=== PATIENT | female | born 1940 | race Caucasian/White ===

== ENCOUNTER → 2021-11-23 | Outpatient (CLI) | payer MEDICARE, BC ==
[2021-11-23 18:43] LABS: BASOPHILS ABSOLUTE AUTO 0.04 K/mm3 (0.00-0.23); BASOPHILS PERCENT AUTO 0 % (0-2); EOSINOPHILS ABSOLUTE AUTO 0.14 K/mm3 (0.00-0.68); EOSINOPHILS PERCENT AUTO 1 % (0-6); Hematocrit 37.3 % (33.0-51.0); Hemoglobin 12.6 g/dL (11.5-16.0); IMMATURE GRAN ABSOLUTE AUTO 0.05 K/mm3 (0.00-0.10); IMMATURE GRAN PERCENT AUTO 0 % (0-1); LYMPHOCYTES ABSOLUTE AUTO 2.18 K/mm3 (0.84-5.20); LYMPHOCYTES PERCENT AUTO 18 % (21-46); MONOCYTES PERCENT AUTO 6 % (4-13); Mean Corpuscular HGB 31.5 pg (26.0-34.0); Mean Corpuscular HGB Conc 33.8 g/dL (31.5-36.5); Mean Corpuscular Volume 93 fL (80-100); Mean Platelet Volume 9.8 fL (9.1-12.4); NEUTROPHILS ABSOLUTE AUTO 9.25 K/mm3 (1.96-9.15); NEUTROPHILS PERCENT AUTO 74 % (41-73); Platelet Count 269 K/mm3 (150-400); RDW Coefficient Variation 12.8 % (11.7-14.2); White Blood Cell Count 12.46 K/mm3 (4.00-11.30)
[2021-11-23 19:02] LABS: Albumin, Blood 3.8 g/dL (3.4-5.0); Bilirubin, Total 0.4 mg/dL (0.1-1.0); Calcium, Blood 9.1 mg/dL (8.5-10.1); Creatinine, Blood 0.85 mg/dL (0.40-1.00); Globulin, Blood 3.7 g/dL (2.2-4.0); Potassium, Blood 3.6 mmol/L (3.5-5.5); Total Protein, Blood 7.5 g/dL (6.4-8.2)
== END ==
LOC: LAB SHORT 17:30 → LAB 17:30
PROVIDERS: Physician Assistant
DX: E11.9 Type 2 diabetes mellitus without complications (principal); R30.0 Dysuria; R31.9 Hematuria, unspecified
CPT/HCPCS: 80053; 83036; 85025; 87077; 87086; 87186

== ENCOUNTER → 2021-12-24 | Outpatient (CLI) | payer MEDICARE, BC | END | disposition home or self-care (01) | LOC: LAB SHORT 14:34 → LAB 14:34 | DX: N39.0 Urinary tract infection, site not specified (principal) | CPT/HCPCS: 87077; 87086; 87186 ==

== ENCOUNTER → 2022-08-14 | Outpatient (CLI) | payer MEDICARE, BC ==
[2022-08-14 13:49] LABS: BASOPHILS ABSOLUTE AUTO 0.03 K/mm3 (0.00-0.23); BASOPHILS PERCENT AUTO 0 % (0-2); EOSINOPHILS ABSOLUTE AUTO 0.09 K/mm3 (0.00-0.68); EOSINOPHILS PERCENT AUTO 1 % (0-6); Hematocrit 40.5 % (33.0-51.0); Hemoglobin 13.6 g/dL (11.5-16.0); IMMATURE GRAN ABSOLUTE AUTO 0.02 K/mm3 (0.00-0.10); IMMATURE GRAN PERCENT AUTO 0 % (0-1); LYMPHOCYTES ABSOLUTE AUTO 2.39 K/mm3 (0.84-5.20); LYMPHOCYTES PERCENT AUTO 29 % (21-46); MONOCYTES ABSOLUTE AUTO 0.57 K/mm3 (0.16-1.47); MONOCYTES PERCENT AUTO 7 % (4-13); Mean Corpuscular HGB 32.5 pg (26.0-34.0); Mean Corpuscular HGB Conc 33.6 g/dL (31.5-36.5); Mean Corpuscular Volume 97 fL (80-100); Mean Platelet Volume 9.7 fL (9.1-12.4); NEUTROPHILS ABSOLUTE AUTO 5.23 K/mm3 (1.96-9.15); NEUTROPHILS PERCENT AUTO 63 % (41-73); Platelet Count 244 K/mm3 (150-400); RDW Coefficient Variation 12.3 % (11.7-14.2); RDW Standard Deviation 43.9 fL (35.1-46.3); Red Blood Cell Count 4.19 M/mm3 (3.80-5.20); White Blood Cell Count 8.33 K/mm3 (4.00-11.30)
[2022-08-14 14:38] LABS: Albumin, Blood 4.3 g/dL (3.4-5.0); Albumin/Globulin Ratio 1.2 (0.8-1.8); Bilirubin, Total 0.7 mg/dL (0.1-1.0); Bun/Creatinine Ratio 25.1 (12.0-20.0); Calcium, Blood 9.4 mg/dL (8.5-10.1); Creatinine, Blood 0.96 mg/dL (0.40-1.00); Globulin, Blood 3.7 g/dL (2.2-4.0); Potassium, Blood 3.9 mmol/L (3.5-5.5)
== END | disposition home or self-care (01) ==
LOC: LAB 13:14 → LAB SHORT 13:14
PROVIDERS: Nurse Practitioner Family
DX: M54.9 Dorsalgia, unspecified (principal); R53.83 Other fatigue
CPT/HCPCS: 80053; 83690; 85025

== ENCOUNTER 2023-11-21 08:38 | Day surgery (SDC) | payer MEDICARE, BC ==
[2023-11-21] VITALS (7 sets, daily range): BP systolic 114–148; BP diastolic 66–86
[~2023-11-21] VITALS: Ht 165.1 cm; Wt 80.7 kg
[2023-11-21] MEDS ORDERED: Acetaminophen650 M1 PO (09:57)
[2023-11-21] MEDS ORDERED: AMLO10 PO (09:57)
[2023-11-21] MEDS ORDERED: [UNRECOGNIZED DRUG - OTHER] PO (10:00)
[2023-11-21] MEDS ORDERED: CALCIUM PO (10:00)
[2023-11-21] MEDS ORDERED: VIT D3 PO (10:01)
[2023-11-21] MEDS ORDERED: ELIQUIS2.5 MG PO (10:02)
[2023-11-21] MEDS ORDERED: DIGOX125 MC2 PO (10:02)
[2023-11-21] MEDS ORDERED: IPRATROPIUM BRO15 ML (10:05)
[2023-11-21] MEDS ORDERED: MAGNESIUM PO (10:06)
[2023-11-21] MEDS ORDERED: PROBIOTIC-10 PO (10:06)
[2023-11-21] MEDS ORDERED: METO50ER PO (10:07)
[2023-11-21] MEDS ORDERED: OMEP20ER PO (10:07)
[2023-11-21] MEDS ORDERED: TAURINE PO (10:08)
[2023-11-21] MEDS ORDERED: ASCORBIC ACID500 MG PO (10:09)
[2023-11-21] MEDS ORDERED: [UNRECOGNIZED DRUG - OTHER] PO (10:09)
[2023-11-21] MEDS ORDERED: VIT A PO (10:09)
[2023-11-21] MEDS ORDERED: CeFAZolin Sodium 1000 mg Vial ONE (12:47)
[2023-11-21] MEDS ORDERED: Bupivacaine 0.5% HCl 5 MG/ML 30MLVIAL ONE (12:47)
[2023-11-21] MEDS ORDERED: Heparin Sodium 1000 Units/ML 10ML MDV ONE (12:48)
[2023-11-21] MEDS ORDERED: NS 1,000 ML IV ONE ×2 (12:48→13:49)
[2023-11-21] MEDS ORDERED: CeFAZolin Sodium 2,000 MG VIAL ONE (13:48)
[2023-11-21] MEDS ORDERED: FentaNYL Citrate 50 MCG/ML 2 ML Injection ONE (13:49)
[2023-11-21] MEDS ORDERED: Midazolam HCl 1MG / ML 2ML Vial ONE (13:49)
[2023-11-21] MEDS ORDERED: NS 100 ML IV ONE (13:49)
--- NOTE | 2023-11-21 14:57 | NUR ---
PATIENT ARRIVED TO RECOVERY ROOM SITTING UPRIGHT IN RECLINER. PACEMAKER SITE C/D/I, NO EVIDENCE OF BLEEDING OR SWELLING. VSS ON RA. PATIENT CONVERSING APPROPRIATELY
--- NOTE | 2023-11-21 15:30 | NUR ---
PATIENT TOLERATING PO INTAKE WELL. NEW MEDICATIONS FAXED TO PATIENTS PREFERRED PHARMACY. VSS ON RA
[2023-11-21] MEDS ORDERED: CEPH250A PO (16:03)
--- NOTE | 2023-11-21 16:38 | NUR ---
PATIENT DISCHARGED HOME AT THIS TIME. PIV REMVOED WITHOUT DIFFICULTY, CATHETER INTACT. DISCAHRGE INSTRUCTIONS REVIEWED WITH PATIENT AND DAUGHTERS AT BEDSIDE. ALL QUESTIONS WERE ANSWERED. PACEMAKER SITE C/D/I, NO EVIDENCE OF BLEEDING. VSS ON RA PATIENT WHEELED TO HOSPITAL ENTRANCE AND DAUGHTER ABLE TO PROVIDE TRANSPORTATION HOME
== END 2023-11-21 16:40 | disposition home or self-care (01) ==
LOC: MHTC 08:38
DX: Z45.010 Encounter for checking and testing of cardiac pacemaker pulse generator [battery] (principal); R00.1 Bradycardia, unspecified; I48.0 Paroxysmal atrial fibrillation; N18.9 Chronic kidney disease, unspecified; K21.9 Gastro-esophageal reflux disease without esophagitis; E78.5 Hyperlipidemia, unspecified; Z88.8 Allergy status to other drugs, medicaments and biological substances; Z79.899 Other long term (current) drug therapy
CPT/HCPCS: 33228; 99152; 99153; C1785; J0690; J1644; J2250; J3010; J7030; J7040

== ENCOUNTER → 2023-12-16 | Outpatient (CLI) | payer MEDICARE, BC ==
[~2023-12-16] MED LIST: AMLO10 PO; ASCORBIC ACID500 MG PO; Acetaminophen650 M1 PO; CALCIUM PO; CEPH250A PO; DIGOX125 MC2 PO; ELIQUIS2.5 MG PO; IPRATROPIUM BRO15 ML; MAGNESIUM PO; METO50ER PO; OMEP20ER PO; PROBIOTIC-10 PO; TAURINE PO; VIT A PO; VIT D3 PO; [UNRECOGNIZED DRUG - OTHER] PO; [UNRECOGNIZED DRUG - OTHER] PO
[2023-12-16 11:42] LABS: Bun/Creatinine Ratio 25.2 (12.0-20.0); Calcium, Blood 9.5 mg/dL (8.5-10.1); Creatinine, Blood 0.99 mg/dL (0.40-1.00)
== END ==
LOC: LAB 09:21 → LAB SHORT 09:21
PROVIDERS: Nurse Practitioner Family
DX: Z51.81 Encounter for therapeutic drug level monitoring (principal); Z79.899 Other long term (current) drug therapy
CPT/HCPCS: 80048; 82306; 82607; 82746